=== PATIENT | female | born 1940 | race Caucasian/White ===

== ENCOUNTER 2017-10-18 13:09 | Emergency (ER) | payer OTHER ==
--- OUTSIDE RECORDS SUMMARY | 2017-10-18 13:12 | XMS REPORT ---
:1940 [facility] Address [address] [place] [address] [address]. Shrestha [address] [place] [address] Care Team Providers Name Role Phone TOÑA CORDOVA Primary Care Provider Unavailable TOÑA CORDOVA Unavailable Unavailable Problems This patient has no known problems. Allergies, Adverse Reactions, Alerts This patient has no known allergies or adverse reactions. Medications This patient has no known medications. Encounters Start End Encounter Admission Attending Care Care Encounter Date/Time Date/Time Type Type Clinicians Facility Department ID 2017-04-24 2017-04-24 [id number] 21:28:00 21:28:00 TOÑA 2017-02-19 2017-02-19 [facility] [id number] 19:56:00 19:56:00 TOÑA Results Test Description Test Time Test Comments Text Results Atomic Results Result Comments Sed Rate ESR ([place]) 2017-04-25 00:08:00 Test Item Value Reference Range Comments ESR (test code=HESR) 50 mm/Hr 0-20 CBC with [id number] 22:20:00 Test Item Value Reference Range Comments WBC (test code=WBC) 18.0 K/cumm 4.4-10.5 RBC (test code=RBC) 4.01 M/cumm 3.75-5.20 Hemoglobin (test code=HGB) 11.6 gm/dL 12.2-14.8 Hematocrit (test code=HCT) 37.9 % 36.5-44.4 MCV (test code=MCV) 94.4 fL 80-100 MCH (test code=MCH) 29.0 pg 27.0-32.5 MCHC (test code=MCHC) 30.7 g/dL 32.0-37.5 RDW (test code=RDW) 15.0 % 11.5-14.5 Platelet Count (test code=PLTCT) 255 K/cumm 140-440 MPV (test code=MPV) 11.8 fL Diff Method (test code=DIFFM) Auto Neutrophil (test code=NEUT) 89.9 % 36-70 Lymphocyte (test code=LYMPH) 7.3 % 12-44 Monocyte (test code=MONO) 2.0 % 0-11 Eosinophil (test code=EOS) 0.6 % 0-7 Basophil (test code=BASO) 0.2 % 0-2 Neutro Abs (test code=ANEUT) 16.2 K/cumm 1.6-7.4 Lymph Abs (test code=ALYMPH) 1.3 K/cumm 0.5-4.6 [place] Abs (test code=AMONO) 0.4 K/cumm 0.0-1.2 Eos Abs (test code=AEOS) 0.10 K/cumm 0.00-0.74 Baso Abs (test code=ABASO) 0.0 K/cumm 0.00-0.21 Lipid [id number] 22:10:00 Test Item Value Reference Range Comments Cholesterol (test 255 mg/dL 0-200 code=CHOL) Triglycerides (test 213 mg/dL 9-200 Unable to calculate, Trig >400 code=TRIG) HDL (test code=HDL) 79 mg/dL 50-60 Chol/HDL (test 3.2 Ratio 0.0-4.4 code=CHOLPHDL) LDL, Calculated (test 133 mg/dL 0-130 (NOTE)RISK OF HEART code=LDLC) DISEASEPublished by [place] Heart AssociationAnalyte Optimal [place] Increased RiskCHOL <200 200-239 >240TRIG <150 150-199 >200HDL Male: >60 <40HDL Female: >60 <50LDL <100 130-159 >160LDL NEAR OPTIMAL IS 100-129 VLDL (test code=VLDL) 43 mg/dL 5-40 LDL/HDL (test code=LDLPHDL) 2 Comprehensive Metabolic [id number] 22:10:00 Test Item Value Reference Range Comments Sodium (test code=NA) 140 mmol/L 135-145 Potassium (test code=K) 4.0 mmol/L 3.5-5.1 Chloride (test code=CL) 97 mmol/L 98-105 Carbon Dioxide (test 29 mmol/L 22-29 code=CO2) Glucose (test code=GLU) 191 mg/dL 70-115 Blood Urea Nitrogen (test 47 mg/dL 8-23 code=BUN) Creatinine (test 1.6 mg/dL 0.5-0.9 code=CREAT) Calcium (test code=CA) 9.1 mg/dL 8.3-10.5 Prot Total (test code=TP) 7.5 g/dL 6.4-8.3 Albumin (test code=ALB) 4.5 g/dL 3.5-5.2 A/G Ratio (test 1.5 Ratio code=AGRATIO) Globulin (test code=GLOB) 3.0 2.9-3.1 Bili Total (test <0.1 mg/dL 0.1-0.9 code=TBIL) Alk Phos (test 76 U/L 35-104 code=APHOS) AST (test code=AST) 24 U/L 1-32 ALT (test code=ALT) 21 U/L 1-33 BUN/Creatinine Ratio 29.4 (test code=BCRATIO) Anion Gap (test 14 mmol/L 7-16 code=AGAP) Estimated GFR (test 33 mL/min/1.73m2 eGFR (estimated Glomerular code=GFR) Filtration Rate) is an estimated value,calculated from the patient's serum creatinine using the MDRD equation.It is NOT the patient's actual GFR. The eGFR provides a more clinicallyuseful measure of kidney disease than serum creatinine alone.This calculation takes sex and race into account, if the informationis provided. If the race is not provided, and the patient isAfrican-Berm[place]ian, multiply by 1.212. If sex is not provided, and thepatient is female, multiply by 0.742. Results for patients <18 years ofage have not been validated by the MDRD study and should be interpretedwith caution.eGFR Result Interpretation:eGFR > or=60 is in the Normal RangeeGFR < 60 may mean kidney diseaseeGFR < 15 may mean kidney failureRanges recommended by the National Kidney Foundation,http://nkdep.nih .gov [id number] 22:10:00 Test Item Value Reference Range Comments NT ProBnp (test code=PBNP) 439 pg/mL 0-449 Thyroid Stimulating Hormone (TSH)2017-02-20 01:00:00 Test Item Value Reference Range Comments TSH (test code=TSH) 0.16 mIU/mL 0.270-4.200 Sed Rate ESR ([place])2017-02-20 00:08:00 Test Item Value Reference Range Comments ESR (test code=HESR) 54 mm/Hr 0-20 Lipid [id number] 23:03:00 Test Item Value Reference Range Comments Cholesterol (test 267 mg/dL 0-200 code=CHOL) Triglycerides (test 148 mg/dL 9-200 code=TRIG) HDL (test code=HDL) 53 mg/dL 50-60 Chol/HDL (test 5.0 Ratio 0.0-4.4 code=CHOLPHDL) LDL, Calculated (test 184 mg/dL 0-130 (NOTE)RISK OF HEART code=LDLC) DISEASEPublished by [place] Heart AssociationAnalyte Optimal [place] Increased RiskCHOL <200 200-239 >240TRIG <150 150-199 >200HDL Male: >60 <40HDL Female: >60 <50LDL <100 130-159 >160LDL NEAR OPTIMAL IS 100-129 VLDL (test code=VLDL) 30 mg/dL 5-40 LDL/HDL (test code=LDLPHDL) 3 Comprehensive Metabolic [id number] 23:03:00 Test Item Value Reference Range Comments Sodium (test code=NA) 141 mmol/L 135-145 Potassium (test code=K) 3.8 mmol/L 3.5-5.1 Chloride (test code=CL) 98 mmol/L 98-105 Carbon Dioxide (test 28 mmol/L 22-29 code=CO2) Glucose (test code=GLU) 119 mg/dL 70-115 Blood Urea Nitrogen (test 29 mg/dL 8-23 code=BUN) Creatinine (test 1.8 mg/dL 0.5-0.9 code=CREAT) Calcium (test code=CA) 9.9 mg/dL 8.3-10.5 Prot Total (test code=TP) 7.5 g/dL 6.4-8.3 Albumin (test code=ALB) 4.5 g/dL 3.5-5.2 A/G Ratio (test 1.5 Ratio code=AGRATIO) Globulin (test code=GLOB) 3.0 2.9-3.1 Bili Total (test 0.2 mg/dL 0.1-0.9 code=TBIL) Alk Phos (test 90 U/L 35-104 code=APHOS) AST (test code=AST) 20 U/L 1-32 ALT (test code=ALT) 13 U/L 1-33 BUN/Creatinine Ratio 16.1 (test code=BCRATIO) Anion Gap (test 15 mmol/L 7-16 code=AGAP) Estimated GFR (test 29 mL/min/1.73m2 eGFR (estimated Glomerular code=GFR) Filtration Rate) is an estimated value,calculated from the patient's serum creatinine using the MDRD equation.It is NOT the patient's actual GFR. The eGFR provides a more clinicallyuseful measure of kidney disease than serum creatinine alone.This calculation takes sex and race into account, if the informationis provided. If the race is not provided, and the patient isAfrican-[place], multiply by 1.212. If sex is not provided, and thepatient is female, multiply by 0.742. Results for patients <18 years ofage have not been validated by the MDRD study and should be interpretedwith caution.eGFR Result Interpretation:eGFR > or=60 is in the Normal RangeeGFR < 60 may mean kidney diseaseeGFR < 15 may mean kidney failureRanges recommended by the National Kidney Foundation,http://nkdep.nih .gov [id number] 23:03:00 Test Item Value Reference Range Comments NT ProBnp (test code=PBNP) 41 pg/mL 0-449 CBC with [id number] 22:56:00 Test Item Value Reference Range Comments WBC (test code=WBC) 7.1 K/cumm 4.4-10.5 RBC (test code=RBC) 3.68 M/cumm 3.75-5.20 Hemoglobin (test code=HGB) 11.4 gm/dL 12.2-14.8 Hematocrit (test code=HCT) 36.9 % 36.5-44.4 MCV (test code=MCV) 100.5 fL 80-100 MCH (test code=MCH) 31.1 pg 27.0-32.5 MCHC (test code=MCHC) 31.0 g/dL 32.0-37.5 RDW (test code=RDW) 13.4 % 11.5-14.5 Platelet Count (test code=PLTCT) 291 K/cumm 140-440 MPV (test code=MPV) 9.5 fL Diff Method (test code=DIFFM) Auto Neutrophil (test code=NEUT) 75.6 % 36-70 Lymphocyte (test code=LYMPH) 13.7 % 12-44 Monocyte (test code=MONO) 4.6 % 0-11 Eosinophil (test code=EOS) 5.8 % 0-7 Basophil (test code=BASO) 0.4 % 0-2 Neutro Abs (test code=ANEUT) 5.4 K/cumm 1.6-7.4 Lymph Abs (test code=ALYMPH) 1.0 K/cumm 0.5-4.6 [place] Abs (test code=AMONO) 0.3 K/cumm 0.0-1.2 Eos Abs (test code=AEOS) 0.41 K/cumm 0.00-0.74 Baso Abs (test code=ABASO) 0.0 K/cumm 0.00-0.21
--- NOTE | 2017-10-18 16:28 | ER ---
Nurse's Notes [facility] Name: Kristal Gonzalez Age: 77 yrs Sex: Female : 1940 Arrival Date: 10/18/2017 Time: 13:14 Bed 13 Private MD: Stephanie Oseguera Diagnosis: Cellulitis of right toe Presentation: 10/18 13:24 Presenting complaint: Patient states: "My second toe on my right foot is swollen and it jl7 hurts. Dr. Hawley sent me up here.". Transition of care: patient was not received from another setting of care. Onset of symptoms was October 15, 2017. Risk Assessment: Do you want to hurt yourself or someone else? Patient reports no desire to harm self or others. Initial Sepsis Screen: Does the patient meet any 2 criteria? No. Patient's initial sepsis screen is negative. Does the patient have a suspected source of infection? No. Patient's initial sepsis screen is negative. Care prior to arrival: None. 13:24 Method Of Arrival: Ambulatory [facility] 13:24 Acuity: KHURRAM 4 jl7 Triage Assessment: 13:30 General: Appears in no apparent distress. comfortable, Behavior is calm, cooperative, jl7 appropriate for age. Pain: Complains of pain in Right second toenail Pain currently is 5 out of 10 on a pain scale. Historical: - Allergies: 13:29 Codeine; jl7 13:29 Sulfa (Sulfonamide Antibiotics); jl7 13:29 peanut; jl7 13:29 Banana; jl7 - PMHx: 13:29 Hypertension; Hypothyroidism; Depression; neuropathy; seasonal allergies; GERD; jl7 restless leg syndrome; - PSHx: 13:29 Hysterectomy; Tonsillectomy; hemorrhoidectomy; jl7 13:30 right big toe amputated; jl7 - Immunization history:: Adult Immunizations up to date. - Social history:: Smoking status: Patient/guardian denies using tobacco. - Ebola Screening: : No symptoms or risks identified at this time. - Family history:: not pertinent. - Hospitalizations: : No recent hospitalization is reported. Screenin:46 Abuse screen: Denies threats or abuse. Nutritional screening: No deficits noted. mb3 Tuberculosis screening: No symptoms or risk factors identified. Fall Risk None identified. Assessment: 13:43 General: Appears in no apparent distress. comfortable, Behavior is calm, cooperative, mb3 appropriate for age. Pain: Complains of pain in plantar aspect of right third toe. Neuro: Level of Consciousness is awake, alert, obeys commands, Oriented to person, place, time, situation, Appropriate for age. Cardiovascular: No deficits noted. Respiratory: No deficits noted. GI: No deficits noted. No signs and/or symptoms were reported involving the gastrointestinal system. : No deficits noted. No signs and/or symptoms were reported regarding the genitourinary system. EENT: No signs and/or symptoms were reported regarding the EENT system. Derm: Wound noted plantar aspect of right third toe Wound is darkened area at ball of toe with hard knot under skin. Vital Signs: 13:30 BP 131 / 60; Pulse 79; Resp 16 S; Temp 98.6(O); Pulse Ox 96% on R/A; Weight 72.57 kg jl7 (R); Height 5 ft. 2 in. (157.48 cm) (R); Pain 5/10; 16:43 BP 143 / 62; Pulse 71; Resp 18; Pulse Ox 98% on R/A; mb3 13:30 Body Mass Index 29.26 (72.57 kg, 157.48 cm) jl7 ED Course: 13:14 Patient arrived in ED. mr 13:14 Stephanie Oseguera is Private Physician. mr 13:26 Triage completed. jl7 13:30 Arm band placed on left wrist. jl7 13:33 Fdeerico Arellano, RN is Primary Nurse. mb3 13:43 Brendon Smiley MD is Attending Physician. rn 13:46 Patient has correct armband on for positive identification. Bed in low position. Call mb3 light in reach. 14:56 X-ray completed. Portable x-ray completed in exam room. Patient tolerated procedure bb2 well. 14:57 XRAY Foot RIGHT 3 View In Process Unspecified. EDMS 16:27 Yovani Hawley DPM is Referral Physician. rn 16:44 No provider procedures requiring assistance completed. Patient did not have IV access mb3 during this emergency room visit. Administered Medications: No medications were administered Outcome: 16:27 Discharge ordered by MD. rn 16:43 Discharged to home ambulatory. mb3 16:43 Condition: stable 16:43 Discharge instructions given to patient, Instructed on discharge instructions, follow up and referral plans. medication usage, Demonstrated understanding of instructions, follow-up care, medications, Prescriptions given X 1. 16:44 Patient left the ED. mb3 Signatures: Dispatcher [employer] KAMLA SaundersSusie guillory Roman, MD MD rn Leal, Jahala, RN RN [email or web address] Jodi Garrido2 Federico Arellano RN RN [email or web address] Corrections: (The following items were deleted from the chart) 13:32 13:24 Presenting complaint: Patient states: "My second toe is swollen and it hurts. Dr. zeke Hawley sent me up here." zeke
--- NOTE | 2017-10-18 16:28 | EDPHYS ---
Physician Documentation [facility] Name: Kristal Gonzalez Age: 77 yrs Sex: Female : 1940 Arrival Date: 10/18/2017 Time: 13:14 Bed 13 Private MD: Stephanie Oseguera ED Physician Brendon Smiley HPI: 10/18 14:39 This 77 yrs old Female presents to ER via Ambulatory with complaints of Feet rn Swelling, Foot Pain. 14:39 The patient presents with pain. The complaints affect the right foot. Onset: The rn symptoms/episode began/occurred 4 day(s) ago. Associated signs and symptoms: Pertinent positives: swelling. The patient has experienced a previous episode. Reports pain and mild redness to right toes # 2 and 3,. Historical: - Allergies: 13:29 Codeine; jl7 13:29 Sulfa (Sulfonamide Antibiotics); jl7 13:29 peanut; jl7 13:29 Banana; jl7 - PMHx: 13:29 Hypertension; Hypothyroidism; Depression; neuropathy; seasonal allergies; GERD; jl7 restless leg syndrome; - PSHx: 13:29 Hysterectomy; Tonsillectomy; hemorrhoidectomy; jl7 13:30 right big toe amputated; jl7 - Immunization history:: Adult Immunizations up to date. - Social history:: Smoking status: Patient/guardian denies using tobacco. - Ebola Screening: : No symptoms or risks identified at this time. - Family history:: not pertinent. - Hospitalizations: : No recent hospitalization is reported. ROS: 14:54 Constitutional: Negative for fever, chills, and weight loss, MS/Extremity: + right foot rn pain Neuro: Negative for headache, weakness, numbness, tingling, and seizure. Exam: 14:54 Constitutional: This is a well developed, well nourished patient who is awake, alert, rn and in no acute distress. MS/ Extremity: Pulses equal, no cyanosis. Neurovascular intact. Full, normal range of motion. Equal circumference. Right foot with 1st toe amputation, 2nd toe and 3rd toe with mild erythema, no fluctuance, no open wounds, callous to plantar surface of right 3rd toe without drainage. Vital Signs: 13:30 BP 131 / 60; Pulse 79; Resp 16 S; Temp 98.6(O); Pulse Ox 96% on R/A; Weight 72.57 kg jl7 (R); Height 5 ft. 2 in. (157.48 cm) (R); Pain 5/10; 16:43 BP 143 / 62; Pulse 71; Resp 18; Pulse Ox 98% on R/A; mb3 13:30 Body Mass Index 29.26 (72.57 kg, 157.48 cm) jl7 MDM: 13:43 Patient medically screened. rn 16:26 Differential diagnosis: fracture, sprain, cellulitis, osteomyelitis. Data reviewed: rn vital signs, nurses notes, radiologic studies, plain films, and as a result, I will discharge patient. Counseling: I had a detailed discussion with the patient and/or guardian regarding: the historical points, exam findings, and any diagnostic results supporting the discharge/admit diagnosis, radiology results, the need for outpatient follow up, to return to the emergency department if symptoms worsen or persist or if there are any questions or concerns that arise at home. Special discussion: I discussed with the patient/guardian in detail that at this point there is no indication for admission to the hospital. It is understood, however, that if the symptoms persist or worsen the patient needs to return immediately for re-evaluation. Based on the history and exam findings, there is no indication for further emergent testing or inpatient evaluation. I discussed with the patient/guardian the need to see the orthopedic surgeon for further evaluation of the symptoms. I discussed with the patient/guardian the need to see the usability specialist for further evaluation of the symptoms. ED course: Delay in radiology read on xrays, instead of patient waiting, discharged with abx, and will call if abnormal. Has f/u with her compliance director. . 10/18 14:14 Order name: XRAY Foot RIGHT 3 View; Complete Time: 18:58 rn Administered Medications: No medications were administered Disposition: 10/18/17 16:27 Discharged to Home. Impression: Cellulitis of right toe. - Condition is Stable. - Discharge Instructions: Cellulitis, Adult. - Prescriptions for Doxycycline Monohydrate 100 mg Oral Tablet - take 1 tablet by ORAL route every 12 hours for 10 days; 20 tablet. - Medication Reconciliation Form, Thank You Letter, Antibiotic Education, Prescription Opioid Use form. - Follow up: Yovani Hawley DPM; When: 2 - 3 days; Reason: Recheck today's complaints, Re-evaluation by your physician. - Problem is new. - Symptoms are unchanged. Signatures: Dispatcher [employer] EDMS Brendon Smiley MD MD rn Leal, Jahala, RN RN jl7 Federico Arellano RN RN mb3 Corrections: (The following items were deleted from the chart) 16:44 16:27 10/18/2017 16:27 Discharged to Home. Impression: Cellulitis of right toe. mb3 Condition is Stable. Forms are Medication Reconciliation Form, Thank You Letter, Antibiotic Education, Prescription Opioid Use. Follow up: Yovani Hawley; When: 2 - 3 days; Reason: Recheck today's complaints, Re-evaluation by your physician. Problem is new. Symptoms are unchanged. rn
[2017-10-18 16:52] VITALS: TEMP 98.6
[2017-10-18 16:53] VITALS: BP 143/62; O2SAT 98
--- NOTE | 2017-10-18 18:05 | RAD REPORT ---
EXAM DESCRIPTION: RAD - Foot Right 3 View - 10/18/2017 3:00 pm CLINICAL HISTORY: 2nd/3rd toe pain, eval for osteo COMPARISON: MRI June 06, 2017 FINDINGS: Since prior imaging the first toe has been resected. First metatarsal head shows no spurri ng, or erosion or other acute finding. No air or foreign body in the soft tissues overlying the first metatarsal head. The second and third toes show no fracture or acute bone process. No erosive changes seen. IP joint d egenerative change is very minimal. Fourth and fifth toes also without acute finding. No metatarsal a bnormality seen. IMPRESSION: No bone or soft tissue finding of the second and third toes. No radiographic evidence fo r osteomyelitis. Resection of the first toe. No acute findings in the metatarsal head or overlying soft tissues.
== END 2017-10-18 16:44 | disposition home or self-care (01) ==
LOC: ER 13:09
DX: L03.031 Cellulitis of right toe (principal); I10 Essential (primary) hypertension; Z88.2 Allergy status to sulfonamides; Z88.5 Allergy status to narcotic agent; Z91.010 Allergy to peanuts; Z91.018 Allergy to other foods
CPT/HCPCS: 99283